=== PATIENT | male | born 1980 | race Caucasian/White ===

== ENCOUNTER 2024-03-21 12:44 | Emergency (ER) | payer SELFPAY ==
[~2024-03-21] VITALS: Ht 167.6 cm; Wt 64.0 kg
[2024-03-21 12:52] VITALS: O2SAT 100
[2024-03-21] MEDS: KETOROLAC 30MG/ML VIAL IV ONE (14:11)
[2024-03-21] MEDS: SODIUM CHLORIDE 0.9% 1,000 ML IV ONE (14:11)
[2024-03-21] MEDS: ONDANSETRON HCL 4MG/2ML INJ IV ONE (14:11)
[2024-03-21] MEDS: TAMSULOSIN HCL 0.4MG SR CAPSULE PO ONE (14:13)
[2024-03-21 14:16] LABS: CHLORIDE 110 mEq/L (98-107); POTASSIUM 4.3 mEq/L (3.5-5.1); SODIUM 141 mEq/L (136-145)
[2024-03-21 14:17] LABS: CALCIUM 9.9 mg/dL (8.7-10.4); CARBON DIOXIDE 25 mEq/L (21-32)
[2024-03-21 14:18] LABS: BASOPHILS % 0.4 % (0.0-2.0); EOSINOPHILS % 0.3 % (0.0-5.0); HEMATOCRIT. 44.6 % (42.0-52.0); HEMOGLOBIN. 15.1 g/dL (14.0-18.0); LYMPHOCYTES % 8.7 % (20.0-50.0); MEAN CORPUSCULAR HEMOGLOBIN 32.1 pg (28.0-32.0); MEAN CORPUSCULAR HGB CONC 33.8 g/dL (31.0-37.0); MEAN CORPUSCULAR VOLUME 94.8 fL (80.0-94.0); MEAN PLATELET VOLUME 8.9 fl (7.4-10.4); NEUTROPHILS % 85.6 % (40.0-76.0); PLATELET 184 x1000/uL (130-400); RED CELL DISTRIBUTION WIDTH 13.2 % (11.6-14.6); WHITE BLOOD COUNT 18.1 x1000/uL (4.5-11.0)
[2024-03-21 14:22] LABS: CREATININE 1.1 mg/dL (0.6-1.3); GLUCOSE 161 mg/dL (70-105); UREA NITROGEN BLOOD 17 mg/dL (9-23)
[2024-03-21 14:24] LABS: PROTHROMBIN TIME 10.9 sec (9.6-11.0)
[2024-03-21] MEDS: MORPHINE SULFATE 4 MG/ML INJ (FOR IV/IM USE) IV ONE (14:25)
[2024-03-21 14:30] LABS: TROPONIN I HIGH SENSITIVITY < 4 ng/L (3.0-53)
[2024-03-21 15:24] LABS: CLARITY URINE CLEAR (CLEAR); COLOR URINE YELLOW (YELLOW); GLUCOSE URINE NEGATIVE (NEGATIVE); KETONES URINE NEGATIVE (NEGATIVE); LEUKOCYTE ESTERASE URINE NEGATIVE (NEGATIVE); NITRITE URINE NEGATIVE (NEGATIVE); OCCULT BLOOD URINE 2+ (NEGATIVE); PH URINE 7.5 (4.5-8.0); PROTEIN URINE NEGATIVE (NEGATIVE); SPECIFIC GRAVITY URINE 1.019 (1.005-1.030); UROBILINOGEN URINE 0.2 E.U./dL (0.2-1.0)
[2024-03-21 16:02] LABS: MUCUS URINE 1+ /lpf (NONE/TRACE); SQUAMOUS EPITHELIAL CELL URINE RARE /lpf (RARE/1+)
[2024-03-21 16:03] LABS: RBC URINE 25-50 /hpf (0-2); WBC URINE NONE SEEN /hpf (0-2)
[2024-03-21 16:04] LABS: BACTERIA URINE TRACE
[2024-03-21] MEDS ORDERED: TAMS-11 MT (16:20)
[2024-03-21] MEDS ORDERED: HYDR-4001 MT (16:20)
[2024-03-21] MEDS ORDERED: IBUP-2028 MT (16:20)
[2024-03-21] MEDS ORDERED: ONDA4TAB50 MT (16:20)
[2024-03-21 16:38] VITALS: BP 114/60; PULSE 70; RESP 16; TEMP 36.94740; O2SAT 100
[2024-03-21] MEDS: ACETAMINOPHEN 500MG TABLET PO ONE (16:45)
== END 2024-03-21 17:00 | disposition home or self-care (01) ==
LOC: ER 12:44
DX: N20.2 Calculus of kidney with calculus of ureter (principal); J45.909 Unspecified asthma, uncomplicated
CPT/HCPCS: 80048; 81003; 83690; 85025; 85610; 84484; 36415; 74176; 96361; 96374; 96375; 99285; J1885; J2405; J2270; J7030; Z7610